=== PATIENT | female | born 1960 | race Caucasian/White ===

== ENCOUNTER 2017-12-25 19:21 | Emergency (ER) | payer OTHER ==
[~2017-12-25] VITALS: Ht 157.5 cm; Wt 93.9 kg
[~2017-12-25 19:21] MED LIST: AMBIEN10 MG PO; BUPROPION XL150 MG PO; CLONAZEPAM1 MG PO; CLONAZEPAM2 MG PO; CYCLOBENZAPRINE5 MG PO; DIVALPROEX SOD500 M1 PO; FLAGYL500 MG PO; LEVAQUIN500 MG PO; LEVOTHYROXINE112 MCG PO; LEVOTHYROXINE50 MCG PO; LIPITOR20 MG PO; LISINOPRIL-HCT1 EACH PO; PANTOPRAZOLE SO40 MG PO; PROPRANOLOL HCL10 MG PO; PROZAC20 MG PO; PROZAC40 MG PO; TEMAZEPAM15 MG PO; TRIAZOLAM0.25 MG PO; ULTRAM50 MG PO; VISTARIL25 MG PO
--- OUTSIDE RECORDS SUMMARY | 2017-12-25 19:24 | XMS REPORT ---
Author [facility] Address Unknown Phone Unavailable Care Team Providers Care Crime Specialist Name Role Phone ED JOSHUA Unavailable Unavailable Problems This patient has no known problems. Allergies, Adverse Reactions, Alerts This patient has no known allergies or adverse reactions. Medications This patient has no known medications. Results Test Description Test Time Test Comments Text Results Atomic Results Result Comments CHEST 2 VIEWS [place] [address] Patient Name: EVELYN OROSCO MR #: [id number] : 1960 Age/Sex: 56/F Req #: [id number] [facility] Physician: ED JOSHUA MD Ordered by: ED JOSHUA MD Report #: [id number] Location: MED/SURG3 Room/Bed: [facility] ___ Procedure: [id number] DX/CHEST 2 VIEWS Exam Date: 06/08/17 Exam Time: 0915 REPORT STATUS: Signed PROCEDURE: CHEST 2 VIEWS TECHNIQUE: PA and lateral chest INDICATION: High blood pressure COMPARISON: None. FINDINGS: Lungs are clear and symmetrically inflated. No pleural effusions. Normal heart size and mediastinal contour. Intact skeleton. CONCLUSION: Normal Dictated by: Robert Marcano M.D. on 06/08/2017 at 9:51 Electronically approved by: Robert Marcano M.D. on 06/08/2017 at 9:51 Dictated By: ROBERT MARCANO MD 0 Transcribed By: LISA on 06/08/17950 COPY TO: ED JOSHUA MD CT ABDOMEN/PELVIS WO [place] [address] Patient Name: EVELYN OROSCO MR #: [id number] : 1960 Age/Sex: 56/F Req #: [id number] Adm Physician: Ordered by: VINICIUS THOMPSON MD Report #: [id number] Location: ER Room/Bed: Procedure: [id number] CT/CT ABDOMEN/PELVIS WO Exam Date: Exam Time: REPORT STATUS: Signed EXAM: CT ABDOMEN AND PELVIS without IV CONTRAST DATE: 06/07/2017 10:50 PM Time stamp on Exam: 0105 hours INDICATION: Abdominal pain, rectal bleeding, left lower quadrant pain COMPARISON: CT of the abdomen and pelvis with IV contrast December 09, 2014 TECHNIQUE: The abdomen and pelvis were scanned using a multidetector helical scanner. Coronal and sagittal reformations were obtained. Routine protocol performed. IV Contrast: None Oral Contrast: Gastrografin CTDIvol has been reviewed. It is below the limits set by the Radiation Protocol Committee (RPC) . FINDINGS: LOWER THORAX: No consolidations LIVER: No masses BILIARY: The gallbladder is unremarkable. No ductal dilation. SPLEEN: No masses PANCREAS: No masses ADRENALS: No nodules KIDNEYS: Punctate nonobstructing stone in the interpolar region of the right kidney. GI TRACT: Small sliding hiatal hernia. Mild pericolonic inflammation of the descending colon. VESSELS: Unremarkable PERITONEUM/RETROPERITONEUM: No free air or fluid LYMPH NODES: No lymphadenopathy REPRODUCTIVE ORGANS: The uterus and ovaries are not visualized. BLADDER: Unremarkable SOFT TISSUES: Unremarkable BONES: No suspicious bone lesions. IMPRESSION: Findings consistent with descending colon nonspecific colitis. Signed by: Dr. Spenser West M.D. on 06/08/2017 1:36 AM Dictated By: SPENSER WEST MD 5 Transcribed By: DANYELL on 06/08/17135 COPY TO: VINICIUS THOMPSON MD
[2017-12-25 20:09] LABS: BASOPHILS % 0.8 % (0.0-1.0); EOSINOPHILS # (AUTO) 0.1 (0.0-0.4); EOSINOPHILS % 2.5 % (0.0-6.0); HEMATOCRIT 35.9 % (34.2-44.1); HEMOGLOBIN 12.4 g/dL (12.0-16.0); LYMPHOCYTES # (AUTO) 1.1 (1.0-3.2); MEAN CORPUSCULAR HEMOGLOBIN 29.5 pg (28-32); MEAN CORPUSCULAR HGB CONC 34.5 g/dL (31-35); MEAN CORPUSCULAR VOLUME 85.5 fL (81-99); MONOCYTES # (AUTO) 0.8 (0.2-0.8); MONOCYTES % 17.6 % (4.4-11.3); NEUTROPHILS # (AUTO) 2.6 (2.1-6.9); NEUTROPHILS % 54.9 % (38.7-80.0); PLATELET COUNT 264 x10e3/uL (140-360); RED CELL DISTRIBUTION WIDTH 13.1 % (11.7-14.4)
[2017-12-25 20:14] LABS: INR 0.99; PROTHROMBIN TIME 12.3 seconds (11.9-14.5)
[2017-12-25 20:15] LABS: PARTIAL THROMBOPLASTIN TIME 28.3 seconds (23.8-35.5)
[2017-12-25 20:27] LABS: ANION GAP 15.6 mmol/L (8-16); CALCIUM 10.2 mg/dL (8.4-10.2); CLARITY,URINE SL CLOUDY (CLEAR); COLOR,URINE YELLOW (YELLOW); CREATININE, SERUM 1.49 mg/dL (0.57-1.11); LEUKOCYTE ESTERASE ,URINE TRACE (NEGATIVE); MAGNESIUM 1.7 MG/DL (1.3-2.1); POTASSIUM 3.6 mmol/L (3.5-5.1)
[2017-12-25 20:28] LABS: BILIRUBIN,URINE 1+ (NEGATIVE); KETONES,URINE NEGATIVE (NEGATIVE); NITRITE,URINE NEGATIVE (NEGATIVE); PREGNANCY TEST, URINE NEGATIVE (NEGATIVE); PROTEIN,URINE DIPSTICK NEGATIVE (NEGATIVE); URINE UROBILINOGEN 0.2 mg/dL (0.2 - 1)
[2017-12-25] MEDS ORDERED: DIATRIZOATE MEGL/DIATRIZOA SOD 30 ML BTL PO ONE (20:29)
[2017-12-25 20:42] LABS: BACTERIA,URINE MODERATE /HPF; EPITHELIAL CELLS,URINE FEW /LPF
[2017-12-25] MEDS ORDERED: SODIUM CHLORIDE 0.9% 1000ML 1,000 ML IV SCH (21:00)
--- NOTE | 2017-12-25 23:58 | Diagnostic Imaging Report ---
EXAM: CT Abdomen and Pelvis WITH contrast INDICATION: Left upper abdominal pain COMPARISON: None. TECHNIQUE: Abdomen and pelvis were scanned utilizing a multidetector helical scanner from the lung base to the pubic symphysis after administration of IV contrast. Coronal and sagittal reformations were obtained. Routine protocol was performed. Scan was performed when during portal venous phase. IV CONTRAST: 100 mL of Isovue-370 ORAL CONTRAST: Gastrografin RADIATION DOSE: Total DLP: 731.23 mGy*cm Estimated effective dose: (DLP x 0.015 x size factor) mSv COMPLICATIONS: None FINDINGS: LINES and TUBES: None. LOWER THORAX: Unremarkable HEPATOBILIARY: No focal hepatic lesions. No biliary ductal dilation. GALLBLADDER: No radio-opaque stones or sludge. No wall thickening. SPLEEN: No splenomegaly. PANCREAS: No focal masses or ductal dilatation. ADRENALS: No adrenal nodules KIDNEYS/URETERS: Kidneys enhance symmetrically. No hydronephrosis. No cystic or solid mass lesions. No stones. GI TRACT: No abnormal distention, wall thickening, or evidence of bowel obstruction. Appendix is not clearly identified. There is however no fat stranding or adenopathy in the right lower quadrant to suggest appendicitis. PELVIC ORGANS/BLADDER: There are postop changes of hysterectomy and bilateral oophorectomies. LYMPH NODES: No lymphadenopathy. VESSELS: Unremarkable. PERITONEUM / RETROPERITONEUM: No free air or fluid. BONES: Unremarkable. SOFT TISSUES: Unremarkable. IMPRESSION: 1. No evidence of acute intra-abdominal or pelvic abnormality. Signed by: Dr. Octavio Varela M.D. on 12/25/2017 11:54 PM
[2017-12-26] MEDS ORDERED: SODIUM CHLORIDE 0.9% 50ML 50 ML ONE (00:06)
[2017-12-26] MEDS ORDERED: IOPAMIDOL 370 MG/ML 200 ML INFUS..BTL INJ ONE (00:07)
== END 2017-12-26 00:20 | disposition home or self-care (01) ==
LOC: ER 19:21
CPT/HCPCS: 99284; Q9967